=== PATIENT | male | born 1970 | race Caucasian/White ===

== ENCOUNTER 2016-11-05 03:19 | Emergency (ER) | payer OTHER | END 2016-11-05 09:52 | disposition home or self-care (01) | LOC: ER 03:19 | DX: L02.214 Cutaneous abscess of groin (principal); R11.0 Nausea; E78.5 Hyperlipidemia, unspecified; F17.210 Nicotine dependence, cigarettes, uncomplicated; Z79.82 Long term (current) use of aspirin; Z88.0 Allergy status to penicillin; Z88.5 Allergy status to narcotic agent | CPT/HCPCS: 36415; 96365; 96367; 96375; 96376; J0696; Q9963; Q9967 ==

== ENCOUNTER 2016-11-17 18:44 | Emergency (ER) | payer OTHER | END 2016-11-17 19:36 | disposition home or self-care (01) | LOC: ER 18:44 | DX: G89.18 Other acute postprocedural pain (principal); R10.32 Left lower quadrant pain; I10 Essential (primary) hypertension; K21.9 Gastro-esophageal reflux disease without esophagitis; E78.5 Hyperlipidemia, unspecified; F17.210 Nicotine dependence, cigarettes, uncomplicated; Z79.82 Long term (current) use of aspirin; Z79.899 Other long term (current) drug therapy; Z88.0 Allergy status to penicillin; Z88.5 Allergy status to narcotic agent | CPT/HCPCS: 96372 ==

== ENCOUNTER 2016-11-19 22:22 | Emergency (ER) | payer OTHER | END 2016-11-20 00:34 | disposition home or self-care (01) | LOC: ER 22:22 | DX: G89.18 Other acute postprocedural pain (principal); R10.31 Right lower quadrant pain; E16.2 Hypoglycemia, unspecified; E78.5 Hyperlipidemia, unspecified; F17.210 Nicotine dependence, cigarettes, uncomplicated; Z88.0 Allergy status to penicillin; Z88.5 Allergy status to narcotic agent; Z79.899 Other long term (current) drug therapy; Z79.82 Long term (current) use of aspirin; Z98.62 Peripheral vascular angioplasty status | CPT/HCPCS: 36415; 96374; 96375; Q9967 ==